=== PATIENT | male | born 1950 | race Caucasian/White ===

== ENCOUNTER 2022-02-21 11:16 | Outpatient (CLI) | payer MEDICARE, SELFPAY ==
[2022-02-21 17:35] LABS: Chloride* 104 mmol/L (96-114)
[2022-02-21 17:36] LABS: Potassium* 4.5 mmol/L (3.6-5.1); Sodium* 138 mmol/L (135-149)
[2022-02-21 17:38] LABS: Cholesterol* 157 mg/dL (90-199)
[2022-02-21 17:39] LABS: Blood Urea Nitrogen* 23 mg/dL (7-30); Calcium* 9.6 mg/dL (8.4-10.6); Carbon Dioxide* 26 mmol/L (20-32); Creatinine* 1.1 mg/dL (0.5-1.5); Estimated Glomerular Filt Rate 72 ml/min; Glucose* 101 mg/dL (60-115); Triglycerides* 77 mg/dL (40-149)
[2022-02-21 17:40] LABS: HDL Cholesterol* 65 mg/dL (>=40); LDL Cholesterol Calculated 77 mg/dL (<100)
[2022-02-21 18:11] LABS: PSA Screen* 3.87 ng/mL (0.10-4.00)
== END 2022-02-21 11:17 | disposition home or self-care (01) ==
PROVIDERS: PCP Family Medicine; Visit Provider Family Medicine
DX: Z00.00 Encounter for general adult medical examination without abnormal findings (principal); E78.5 Hyperlipidemia, unspecified; I10 Essential (primary) hypertension; R35.0 Frequency of micturition; Z12.5 Encounter for screening for malignant neoplasm of prostate
CPT/HCPCS: 80048; 80061; 84153

== ENCOUNTER 2023-12-12 09:07 | Outpatient (CLI) | payer MEDICARE, SELFPAY | END 2023-12-12 09:08 | disposition home or self-care (01) | PROVIDERS: PCP Family Medicine; Visit Provider Family Medicine | DX: I10 Essential (primary) hypertension (principal); E78.5 Hyperlipidemia, unspecified | CPT/HCPCS: 80048; 80061 ==

== ENCOUNTER 2025-03-02 14:05 | Outpatient (CLI) | payer MEDICARE, SELFPAY | END 2025-03-02 14:06 | disposition home or self-care (01) | PROVIDERS: PCP Family Medicine; Visit Provider Family Medicine | DX: I10 Essential (primary) hypertension (principal); E78.2 Mixed hyperlipidemia | CPT/HCPCS: 80048; 80061 ==